=== PATIENT | male | born 1975 | race Caucasian/White ===

== ENCOUNTER 2022-01-09 10:39 | Emergency (ER) | payer MEDICAID, OTHER ==
[~2022-01-09] VITALS: Ht 172.7 cm; Wt 74.0 kg
[2022-01-09 11:06] VITALS: BP 120/81
[2022-01-09] MEDS ORDERED: proparacaine 0.5% ophthalmic drops 15ml RIGHTEYE ONE (12:00)
[2022-01-09] MEDS ORDERED: neomycin/polymyxn B/gramicidin ophthalmic drops 10ml RIGHTEYE ONE (13:15)
[2022-01-09] MEDS ORDERED: TETanus/Pertussis (Acell)/Diphther VAC/PF (Tdap-Adult) 0.5ml syringe IMVAC ONE (13:15)
== END 2022-01-09 14:47 | disposition home or self-care (01) ==
LOC: ER 10:40
DX: T15.01XA Foreign body in cornea, right eye, initial encounter (principal); H57.11 Ocular pain, right eye; Z20.3 Contact with and (suspected) exposure to rabies; F17.200 Nicotine dependence, unspecified, uncomplicated; X58.XXXA Exposure to other specified factors, initial encounter; Y93.89 Activity, other specified; Y92.89 Other specified places as the place of occurrence of the external cause; Y99.8 Other external cause status
CPT/HCPCS: 65220; 90471; 90715; 99284